=== PATIENT | male | born 1985 | race Caucasian/White ===

== ENCOUNTER 2021-05-30 22:12 | Emergency (ER) | payer SELFPAY ==
[~2021-05-30] VITALS: Ht 182.9 cm; Wt 95.5 kg
[~2021-05-30 22:12] MED LIST: NOCURR
[2021-05-30 22:22] VITALS: BP 130/64
== END 2021-05-31 01:07 | disposition left against medical advice (07) ==
LOC: EMS 22:13
DX: M79.606 Pain in leg, unspecified (principal); Z53.21 Procedure and treatment not carried out due to patient leaving prior to being seen by health care provider